=== PATIENT | female | born 1990 | race Two or more races ===

== ENCOUNTER 2016-09-03 18:42 | Emergency (ER) | payer SELFPAY ==
[~2016-09-03] VITALS: Ht 157.5 cm; Wt 49.9 kg
[2016-09-03] MEDS ORDERED: IV NORMAL SALINE 1000ML BAG 1,000 ML IV SCH (19:24)
[2016-09-03] MEDS ORDERED: ONDANSETRON PF 4 MG/2 ML VIAL. IV ONE (19:30)
[2016-09-03] MEDS ORDERED: KETOROLAC TROMETHAMINE 30 MG/ML SYRINGE. IV ONE (19:30)
[2016-09-03] MEDS ORDERED: HYDROMORPHONE 2 MG/ML VIAL. IV ONE (19:30)
[2016-09-03 19:33] LABS: BASO # 0.1 x10^3/uL (0.0-0.2); BASO % 1 % (0-3); EOS % 2 % (0-3); HEMATOCRIT 39.2 % (36.0-47.0); HEMOGLOBIN 12.9 g/dL (12.0-15.5); LYMPH # 3.6 x10^3/uL (1.0-4.8); LYMPH % 27 % (24-48); MEAN CORPUSCULAR HEMOGLOBIN 28 pg (25-35); MEAN CORPUSCULAR HGB CONC 33 g/dL (31-37); MEAN CORPUSCULAR VOLUME 86 fL (79-100); MONO % 6 % (0-9); NEUT % 64 % (31-73); PLATELET COUNT 195 x10^3/uL (140-400); RED BLOOD COUNT 4.58 x10^6/uL (3.50-5.40); RED CELL DISTRIBUTION WIDTH 12.9 % (11.5-14.5)
[2016-09-03 19:46] LABS: CREATININE 0.6 mg/dL (0.6-1.0); GFR 120.8; POTASSIUM 3.2 mmol/L (3.5-5.1)
[2016-09-03 19:52] LABS: ALBUMIN 4.1 g/dL (3.4-5.0); ALBUMIN/GLOBULIN RATIO 1.2 (1.0-1.7); TOTAL BILIRUBIN 0.7 mg/dL (0.2-1.0); TOTAL PROTEIN 7.6 g/dL (6.4-8.2)
[2016-09-03 20:25] VITALS: BP 122/69
--- NOTE | 2016-09-03 21:39 | RAD ---
PROCEDURE Right upper quadrant ultrasound dated 09/03/2016. HISTORY Right upper quadrant pain. TECHNIQUE Routine sonographic imaging performed. COMPARISON None. FINDINGS Liver is homogeneous in echogenicity. No focal hepatic mass. Intrahepatic biliary tree normal in caliber. The common bile duct is mildly dilated for age measuring 6 millimeters diameter. Echogenic shadowing foci within the gallbladder lumen. Mild wall thickening 4.2mm. No pericholecystic fluid. Intraluminal echogenic material consistent with sludge. Positive sonographic Brumfield's sign. Right kidney measures 10.7 centimeter in length without hydronephrosis. Left kidney not imaged. Limited visualized portions of pancreas aorta and IVC unremarkable. No significant ascites. IMPRESSION - Cholelithiasis with mild gallbladder wall thickening and positive Brumfield sign. Acute cholecystitis cannot be excluded. - Mildly dilated common bile duct for patient's age could be reactive. Distal duct stone or stricture cannot be excluded. Recommend laboratory correlation. Electronically signed by: Mehrdad Cadet (Sep 03, 2016 21:38:28)
[2016-09-03 21:54] LABS: NEG OBC UR NEG; POS OBC UR POS
[2016-09-03 21:59] LABS: BILIRUBIN,URINE NEGATIVE (NEG); GLUCOSE,URINE NEGATIVE (NEG); NITRITE,URINE NEGATIVE (NEG); PROTEIN,URINE NEGATIVE (NEG-TRACE); UROBILINOGEN,URINE 0.2 mg/dL (0.2 mg/dL)
[2016-09-03] MEDS ORDERED: HYOS0.125 PO (22:04)
[2016-09-03] MEDS ORDERED: IBUP-1007 PO (22:04)
[2016-09-03] MEDS ORDERED: HYDR-2678 PO (22:04)
[2016-09-03] MEDS ORDERED: ONDA4TAB10 SL (22:04)
--- NOTE | 2016-09-03 22:04 | PHYS DOC ---
Past Medical History Past Medical History: No Pertinent History Past Surgical History: No Surgical History Alcohol Use: Occasionally Drug Use: None Adult General Chief Complaint Chief Complaint: FLANK PAIN HPI HPI Patient is a 26 year old female who presents here today complaining of right upper quadrant pain with nausea vomiting. Patient has no past medical history. No history of hypertension diabetes liver longer kidney problems. Patient has not had any prior abdominal or chest surgeries. No smoking alcohol or drugs. No known drug allergies. Patient reports right upper quadrant pain started approximately 2 hours prior to arrival. She reports it started approximately 1 hour after eating a tortilla with a lot of hot sauce on it. Patient has any fevers shaking chills diarrhea dysuria frequency or urgency. Patient's last menstrual period was August 18, 2015. Patient denies any fevers shaking chills cough cold rhinorrhea dysuria frequency urgency melena or bright red blood per rectum. While in the ER, the patient had multiple episodes of emesis. Patient had severe tenderness to palpation in her right upper quadrant. Patient was given Toradol, Dilaudid, and Zofran with significant improvement in her discomfort. Patient had an ultrasound of her right upper quadrant which revealed cholelithiasis with mild gallbladder wall thickening. Patient had a positive Brumfield sign on the ultrasound exam however on my physical exam patient did not have a Brumfield sign. Patient had mildly dilated, mild duct noted on the ultrasound as well too. Patient was reevaluated at 9:45 PM. Upon reevaluation the patient reports that her pain is completely resolved. Patient has no tenderness to palpation to the right upper quadrant. Patient has no Brumfield sign. Patient has not had any emesis since the antibiotics that were given to her in the ED. Patient reports she is currently hungry and thirsty. The patient the options regarding her gallbladder disease. This appears to be her first episode of biliary colic. Given that this is her first episode and her symptoms are completely resolved at this time I think that it would be best final option to discharge her home with antiemetics, pain meds, antispasmodics and have her follow-up with her primary care physician for a surgical consultation. I discussed with the patient that if pain returns if she has any further episodes of emesis that she will likely need to be admitted to the hospital for pain management and hydration. Patient's family are in complete agreement with this plan at this time. They agree that admission to the hospital right now is not something that they would prefer. Patient's physical exam was significant for tenderness to palpation. Right upper quadrant. Patient no rebound or guarding. Patient had no tenderness at McBurney's point. Patient had no Brumfield sign. Patient had normal active bowel sounds. Patient is afebrile. Review of Systems Review of Systems Constitutional: Denies fever or chills [] Eyes: Denies change in visual acuity, redness, or eye pain [] All other review of systems are negative except as documented in the history of present illness portion Current Medications Current Medications Current Medications Medications (Trade) Dose Ordered Sig/Korina Start Time Stop Time Status Last Admin Dose Admin Hydromorphone HCl (Dilaudid) 1 mg 1X ONCE 09/03/16 19:30 09/03/16 19:31 DC 09/03/16 19:30 1 MG Ketorolac Tromethamine (Toradol) 15 mg 1X ONCE 09/03/16 19:30 09/03/16 19:31 DC 09/03/16 19:30 15 MG Ondansetron HCl (Zofran) 4 mg 1X ONCE 09/03/16 19:30 09/03/16 19:31 DC 09/03/16 19:30 4 MG Sodium Chloride (Iv Sodium Chloride 0.9% 1000ml Bag) 1,000 ml @ 1,000 mls/hr Q1H 09/03/16 19:24 09/03/16 20:23 DC 09/03/16 19:24 1,000 MLS/HR Allergies Allergies Allergies Coded Allergies Type Severity Reaction Last Updated Verified No Known Drug Allergies 09/03/16 No Physical Exam Physical Exam Constitutional: Well developed, well nourished, no acute distress, non-toxic appearance. [] HENT: Normocephalic, atraumatic, bilateral external ears normal, oropharynx moist, no oral exudates, nose normal. [] Eyes: PERRLA, EOMI, conjunctiva normal, no discharge. [] Neck: Normal range of motion, no tenderness, supple, no stridor. [] Cardiovascular:Heart rate regular rhythm, no murmur [] Lungs & Thorax: Bilateral breath sounds clear to auscultation [] Abdomen: Please see above Skin: Warm, dry, no erythema, no rash. [] Back: No tenderness, no CVA tenderness. [] Extremities: No tenderness, no cyanosis, no clubbing, ROM intact, no edema. [] Neurologic: Alert and oriented X 3, normal motor function, normal sensory function, no focal deficits noted. [] Psychologic: Affect normal, judgement normal, mood normal. [] Current Patient Data Vital Signs Vital Signs Date Time Temp Pulse Resp B/P Pulse Ox O2 Delivery O2 Flow Rate FiO2 09/03/16 18:55 97.8 63 16 125/69 100 Room Air 97.8 Lab Values Laboratory Tests Test 09/03/16 18:55 09/03/16 20:52 White Blood Count 13.0x10^3/uL (4.0-11.0) H Red Blood Count 4.58x10^6/uL (3.50-5.40) Hemoglobin 12.9g/dL (12.0-15.5) Hematocrit 39.2% (36.0-47.0) Mean Corpuscular Volume 86fL (79-100) Mean Corpuscular Hemoglobin 28pg (25-35) Mean Corpuscular Hemoglobin Concent 33g/dL (31-37) Red Cell Distribution Width 12.9% (11.5-14.5) Platelet Count 195x10^3/uL (140-400) Neutrophils (%) (Auto) 64% (31-73) Lymphocytes (%) (Auto) 27% (24-48) Monocytes (%) (Auto) 6% (0-9) Eosinophils (%) (Auto) 2% (0-3) Basophils (%) (Auto) 1% (0-3) Neutrophils # (Auto) 8.4x10^3uL (1.8-7.7) H Lymphocytes # (Auto) 3.6x10^3/uL (1.0-4.8) Monocytes # (Auto) 0.8x10^3/uL (0.0-1.1) Eosinophils # (Auto) 0.2x10^3/uL (0.0-0.7) Basophils # (Auto) 0.1x10^3/uL (0.0-0.2) Sodium Level 143mmol/L (136-145) Potassium Level 3.2mmol/L (3.5-5.1) L Chloride Level 105mmol/L (98-107) Carbon Dioxide Level 25mmol/L (21-32) Anion Gap 13 (6-14) Blood Urea Nitrogen 12mg/dL (7-20) Creatinine 0.6mg/dL (0.6-1.0) Estimated GFR (Cockcroft-Gault) 120.8 BUN/Creatinine Ratio 20 (6-20) Glucose Level 110mg/dL (70-99) H Calcium Level 9.0mg/dL (8.5-10.1) Total Bilirubin 0.7mg/dL (0.2-1.0) Aspartate Amino Transferase (AST) 14U/L (15-37) L Alanine Aminotransferase (ALT) 21U/L (14-59) Alkaline Phosphatase 62U/L (46-116) Total Protein 7.6g/dL (6.4-8.2) Albumin 4.1g/dL (3.4-5.0) Albumin/Globulin Ratio 1.2 (1.0-1.7) Lipase 135U/L (73-393) Urine Test Negative (NEG) Laboratory Tests 09/03/16 18:55 Laboratory Tests 09/03/16 18:55 EKG EKG [] Radiology/Procedures Radiology/Procedures [] Ultrasound please see above Course & Med Decision Making Course & Med Decision Making Pertinent Labs and Imaging studies reviewed. (See chart for details) [] Assessment and plan. This a 26-year-old with cholelithiasis that has resolved with pain meds and antiemetics in the ED. Please see above for full discussion with the family. Patient will be discharged home in stable condition. Patient was instructed to return to the ER if she has any further problems. Dragon Disclaimer Dragon Disclaimer This electronic medical record was generated, in whole or in part, using a voice recognition dictation system. Departure Departure Impression: Primary Impression: Biliary colic Disposition: 01 HOME, SELF-CARE Condition: IMPROVED Referrals: NO PCP (PCP) Patient Instructions: Biliary Colic Additional Instructions: Please follow up with her family doctor for referral to see a surgeon to be further evaluated for your gallbladder. Return to the ER for any fevers. Return to the ER if have increasing pain that is not resolved with the medicines that you were given. Return to the ER if you have persistent vomiting again. Scripts Hyoscyamine Sulfate 0.125 Mg Tab.rapdis0.125 Mg PO q6 PRN pa #10 Prov:OTTO LEE MD 09/03/16 Ondansetron (Zofran Odt)4 Mg Tab.rapdis1 Tab SL Q6HRS PRN NAUSEA #12 TAB Prov:OTTO LEE MD 09/03/16 Hydrocodone/Acetaminophen (Lortab 5-325 mg Tablet)1 Each Tablet1 Tab PO PRN Q6HRS PRN PAIN #14 TAB Prov:OTTO LEE MD 09/03/16 Ibuprofen 600 Mg [id number] Mg PO PRN Q6HRS PRN INFLAMMATION #20 TAB Prov:OTTO LEE MD 09/03/16 OTTO LEE MD Sep 03, 2016 22:04
[2016-09-03 22:10] LABS: RBC,URINE 0 /HPF (0-2)
[2016-09-03 22:11] LABS: BACTERIA,URINE FEW /HPF (0-FEW); SQUAMOUS EPITHELIAL CELL,UR FEW /LPF
== END 2016-09-03 22:28 | disposition home or self-care (01) ==
LOC: ER 18:42
DX: K80.50 Calculus of bile duct without cholangitis or cholecystitis without obstruction (principal); R50.9 Fever, unspecified; R11.2 Nausea with vomiting, unspecified
CPT/HCPCS: 36415; 76705; 80053; 81001; 81025; 83690; 85027; 96361; 96374; 96375; 99285; J1170; J1885; J2405; J7030

== ENCOUNTER 2017-06-08 01:03 | Inpatient (IN) | payer SELFPAY ==
[~2017-06-08] VITALS: Ht 152.4 cm; Wt 68.0 kg
[~2017-06-08 01:03] MED LIST: HYDR-2678 PO; HYOS0.1222 PO; IBUP-1007 PO; ONDA4TAB10 SL
[2017-06-08 01:36] VITALS: BP 106/65
[2017-06-08] MEDS ORDERED: BUTORPHANOL 2 MG/ML VIAL. IV PRN (02:15)
[2017-06-08] MEDS ORDERED: ONDANSETRON PF 4 MG/2 ML VIAL. IV PRN (02:15)
[2017-06-08] MEDS ORDERED: ACETAMINOPHEN 325 MG TABLET. PO PRN ×2 (02:15→04:30)
[2017-06-08] MEDS ORDERED: IV RINGERS,LACTATED 1000ML 1,000 ML IV SCH (02:15)
[2017-06-08] MEDS ORDERED: TERBUTALINE 1 MG/ML VIAL. SQ PRN (02:15)
[2017-06-08] MEDS ORDERED: 0.9 % SODIUM CHLORIDE 10 ML DISP.SYRIN. IV PRN ×2 (02:15→04:30)
[2017-06-08] MEDS ORDERED: fentaNYL PF VIAL 100 MCG/2 ML VIAL IV PRN (02:15)
[2017-06-08] MEDS ORDERED: OXYTOCIN 30 UNIT/500 ML PREMIX 500 ML IV PRN ×2 (02:15→04:30)
[2017-06-08] MEDS ORDERED: IBUPROFEN 600 MG TABLET. PO PRN (02:15)
[2017-06-08] MEDS ORDERED: MAG HYDROX/ALUMINUM HYD/SIMETH 30 ML ORAL.SUSP PO PRN ×2 (02:15→04:30)
[2017-06-08] MEDS ORDERED: LIDOCAINE 1% PF 30 ML VIAL. INJ PRN (02:15)
--- NOTE | 2017-06-08 02:28 | PDOC1 ---
OB - History Hx of Present Care: Good Care Ultrasounds: Normal mid trimester US Obstetrical Complications: None Medical Complications: None Past Family/Social History * Past Medical, Surgical, Family and Obstetric Histories reviewed from chart. Rubella: Immune RPR/VDRL: Negative GBS Status: Negative HBsAG: Negative OB - Chief Complaint & HPI Date of Admission: Date of Admission: Jun 08, 2017 at 01:03 Chief Complaint/History : 4 Para: 2 EGA: 38 Reason for admission: active labor Admission Nurse Assessment Rev: Yes Problems: OB - Admission Exam Physical Exam HEENT: Normal Heart: Regular Rate Lungs: Clear Abdomen: Gravid, Non tender, Soft Extremities: Edema Reflexes: Normal Cervical Dilatation: 7cm Effacement: 100% Station: -2 Membranes: Intact Heart Rate: Normal Accelerations: Accelerations Present Decelerations: No decelerations Contractions on Admission: < 5 Minutes Apart Intensity: Firm Text A: 38 wks IUP Active labor P: Admit for labor management. DARRYL WEISS Jr, MD Jun 08, 2017 02:28
[2017-06-08 02:45] LABS: HEMATOCRIT 38.8 % (36.0-47.0); HEMOGLOBIN 12.8 g/dL (12.0-15.5); RED BLOOD COUNT 4.51 x10^6/uL (3.50-5.40); RED CELL DISTRIBUTION WIDTH 13.3 % (11.5-14.5); WHITE BLOOD COUNT 11.4 x10^3/uL (4.0-11.0)
[2017-06-08] MEDS ORDERED: PENICILLIN G K 5,000,000 UNIT in IV DEXTROSE 5% 100 ML IV ONE (03:00)
[2017-06-08] MEDS ORDERED: OXYTOCIN in NORMAL SALINE PREMIX 30 UNIT/500 ML BAG. IV ONE (03:30)
--- NOTE | 2017-06-08 04:23 | PDOC ---
VAGINAL DELIVERY DATE DATE: 06/08/17 TIME: 04:21 : 4 Para: 3 EGA: 38 VAGINAL DELIVERY: VTX VACCUM ASSISTED: No PLACENTA: Spontaneous 9/9 SEX: Male WEIGHT Weight [3294 gm ] Nuchal Cord: No Amniotic Fluid: Thin Meconium PAIN: Natural EPISIOTOMY: No EXTENSION: Yes (2nd degree midline laceration) REPAIRED WITH 2-0 Vicryl EBL 300 ml COMPLICATIONS none CONDITION pt. stable Signs of Intrauterine Infectio: None Shoulder Dystocia: No Problems: DARRYL WEISS Jr, MD Jun 08, 2017 04:23
[2017-06-08] MEDS ORDERED: MAGNESIUM HYDROXIDE 2,400 MG/30 ML ORAL.SUSP. PO PRN (04:30)
[2017-06-08] MEDS ORDERED: ZOLPIDEM 5 MG TABLET. PO PRN (04:30)
[2017-06-08] MEDS ORDERED: SIMETHICONE 80 MG TAB.CHEW PO PRN (04:30)
[2017-06-08] MEDS ORDERED: oxyCODONE/APAP 5/325 1 TAB TABLET PO PRN (04:30)
[2017-06-08] MEDS ORDERED: PHENYLEPH/MINERAL OIL/PETROLAT RECTAL OINTMENT 28GM TUBE. RC PRN (04:30)
[2017-06-08] MEDS ORDERED: MMR per PROTOCOL. MC PRN (04:30)
[2017-06-08] MEDS ORDERED: HYDROCORTISONE 1% TOPICAL OINTMENT 30GM TUBE. TP PRN (04:30)
[2017-06-08] MEDS ORDERED: BENZOCAINE 20% TOPICAL AEROSOL SPRAY 57GM CAN. TP PRN (04:30)
[2017-06-08] MEDS ORDERED: diphenhydrAMINE HCL 25 MG CAPSULE PO PRN (04:30)
[2017-06-08] MEDS: IBUPROFEN 800 MG TABLET. PO PRN ×2 (05:58→18:10)
[2017-06-08] MEDS ORDERED: PENICILLIN G K 2,500,000 UNIT in IV DEXTROSE 5% 50 ML IV SCH (07:00)
[2017-06-08 09:10] VITALS: BP 111/71
[2017-06-08 22:00] VITALS: BP 103/60
[2017-06-09 02:00] VITALS: BP 95/61
[2017-06-09 05:03] LABS: BASO % 0 % (0-3); EOS % 2 % (0-3); HEMATOCRIT 34.7 % (36.0-47.0); HEMOGLOBIN 11.6 g/dL (12.0-15.5); LYMPH # 3.3 x10^3/uL (1.0-4.8); LYMPH % 29 % (24-48); MEAN CORPUSCULAR HEMOGLOBIN 29 pg (25-35); MEAN CORPUSCULAR HGB CONC 33 g/dL (31-37); MEAN CORPUSCULAR VOLUME 86 fL (79-100); MONO % 9 % (0-9); NEUT % 60 % (31-73); PLATELET COUNT 211 x10^3/uL (140-400); RED BLOOD COUNT 4.03 x10^6/uL (3.50-5.40); RED CELL DISTRIBUTION WIDTH 13.8 % (11.5-14.5); WHITE BLOOD COUNT 11.7 x10^3/uL (4.0-11.0)
[2017-06-09] MEDS: IBUPROFEN 800 MG TABLET. PO PRN ×2 (07:44→20:30)
[2017-06-09] MEDS: DOCUSATE SODIUM 100 MG CAPSULE. PO PRN ×2 (07:44→20:30)
[2017-06-09] MEDS ORDERED: FERROUS SULFATE 325 MG TABLET. PO SCH (08:00)
[2017-06-09] MEDS ORDERED: FLU VACC QS2017-18 (36MOS+)/PF 0.5 ML SYRINGE. VAX IM ONE (08:00)
[2017-06-09 08:45] VITALS: BP 102/65
--- NOTE | 2017-06-09 09:14 | PDOC ---
Provider Note Provider Note Doing well VSSuterus NTTP FU in AM Vital Sign - Last 24 Hours 06/08/17 06/09/17 22:00 02:00 Temp 98.0 98.0 98.0 98.0 Pulse 74 84 Resp 16 16 B/P (MAP) 103/60 (74) 95/61 (72) Pulse Ox 98 O2 Delivery Room Air Room Air CBC - BMP 06/09/17 03:40 NAS HOLDEN MD Jun 09, 2017 09:14
[2017-06-09] MEDS ORDERED: DIPHTH,PERTUSS(ACELL),TET TOX 0.5 ML DISP.SYRIN. VAX IM ONE (11:30)
[2017-06-09 15:39] VITALS: BP 105/62
[2017-06-09 20:30] VITALS: BP 103/66
[2017-06-10 05:00] VITALS: BP 103/64
--- NOTE | 2017-06-10 11:55 | PDOC ---
OB Progress Note Date of Service 06/10/17 Time of Evaluation 1155 Notes Pt. feeling well. No complaints. Lab Laboratory Tests Test 06/09/17 03:40 White Blood Count 11.7 x10^3/uL (4.0-11.0) Red Blood Count 4.03 x10^6/uL (3.50-5.40) Hemoglobin 11.6 g/dL (12.0-15.5) Hematocrit 34.7 % (36.0-47.0) Mean Corpuscular Volume 86 fL (79-100) Mean Corpuscular Hemoglobin 29 pg (25-35) Mean Corpuscular Hemoglobin Concent 33 g/dL (31-37) Red Cell Distribution Width 13.8 % (11.5-14.5) Platelet Count 211 x10^3/uL (140-400) Neutrophils (%) (Auto) 60 % (31-73) Lymphocytes (%) (Auto) 29 % (24-48) Monocytes (%) (Auto) 9 % (0-9) Eosinophils (%) (Auto) 2 % (0-3) Basophils (%) (Auto) 0 % (0-3) Neutrophils # (Auto) 7.0 x10^3uL (1.8-7.7) Lymphocytes # (Auto) 3.3 x10^3/uL (1.0-4.8) Monocytes # (Auto) 1.0 x10^3/uL (0.0-1.1) Eosinophils # (Auto) 0.3 x10^3/uL (0.0-0.7) Basophils # (Auto) 0.0 x10^3/uL (0.0-0.2) Medications Current Medications Sodium Chloride (Normal Saline Flush) 3 ml QSHIFT PRN IV AFTER MEDS AND BLOOD DRAWS; Start 06/08/17 at 02:15; Stop 06/08/17 at 04:29; Status DC Ringer's Solution 1,000 ml @ 125 mls/hr Q8H IV Last administered on 01:55; Start 06/08/17 at 02:15 Butorphanol Tartrate (Stadol) 2 mg PRN Q1HR PRN IV Severe labor pain Last administered on 06/08/17 03:28; Start 06/08/17 at 02:15 Fentanyl Citrate (Fentanyl 2ml Vial) 100 mcg PRN Q20MIN PRN IV Labor pain; Start 06/08/17 at 02:15 Acetaminophen (Tylenol) 650 mg PRN Q6HRS PRN PO MILD PAIN / TEMP; Start at 02:15; Stop 06/08/17 at 04:29; Status DC Ondansetron HCl (Zofran) 4 mg PRN Q4HRS PRN IV NAUSEA/VOMITING; Start at 02:15 Al Hydroxide/Mg Hydroxide (Mylanta Plus Xs) 30 ml PRN Q4HRS PRN PO HEARTBURN / GAS; Start 06/08/17 at 02:15; Stop 06/08/17 at 04:30; Status DC Terbutaline Sulfate (Brethine) 0.25 mg 1X PRN PRN SQ SEE COMMENTS; Start 06/08 at 02:15; Stop 06/09/17 at 02:15; Status DC Lidocaine HCl 30 ml 1X PRN PRN INJ SEE COMMENTS Last administered on 04:27; Start 06/08/17 at 02:15; Stop 06/10/17 at 02:14; Status DC Oxytocin/Sodium Chloride 500 ml @ 0 mls/hr CONT PRN PRN IV Post delivery bleeding; Start 06/08/17 at 02:15; Stop 06/08/17 at 04:31; Status DC Ibuprofen (Motrin) 600 mg PRN Q6HRS PRN PO MODERATE PAIN; Start 06/08/17 at 02 :15; Stop 06/08/17 at 04:29; Status DC Penicillin G Potassium [id number] unit/Dextrose 100 ml @ 100 mls/hr 1X ONCE IV Last administered on 06/08/17 02:42; Start 06/08/17 at 03:00; Stop 06/08/17 at 03:59; Status DC Penicillin G Potassium [id number] unit/Dextrose 50 ml @ 100 mls/hr Q4H IV ; Start 06/08/17 at 07:00 Sodium Chloride (Normal Saline Flush) 10 ml QSHIFT PRN IV AFTER MEDS AND BLOOD DRAWS; Start 06/08/17 at 04:30 Oxytocin/Sodium Chloride 500 ml @ 62.5 mls/hr CONT PRN IV SEE I/O RECORD; Start 06/08/17 at 04:30; Stop 06/08/17 at 12:29; Status DC Acetaminophen (Tylenol) 650 mg PRN Q6HRS PRN PO MILD PAIN / TEMP; Start at 04:30 Ibuprofen (Motrin) 800 mg PRN Q8HRS PRN PO INFLAMMATION/PAIN PREVENTION Last administered on 06/09/17 20:30; Start 06/08/17 at 04:30 Docusate Sodium (Colace) 100 mg PRN BID PRN PO CONSTIPATION Last administered on 06/09/17 20:30; Start 06/08/17 at 04:30 Magnesium Hydroxide (Milk Of Magnesia) 2,400 mg PRN DAILY PRN PO CONSTIPATION; Start 06/08/17 at 04:30 Al Hydroxide/Mg Hydroxide (Mylanta Plus Xs) 30 ml PRN Q4HRS PRN PO HEARTBURN / GAS; Start 06/08/17 at 04:30 Simethicone (Gas-X) 80 mg PRN AFTMEALHC PRN PO GAS / BLOATING; Start 06/08/17 at 04:30 Diphenhydramine HCl (Benadryl) 25 mg PRN Q6HRS PRN PO ITCHING; Start 06/08/17 at 04:30 Benzocaine (Americaine) 1 spray PRN QID PRN TP TOPICAL PAIN Last administered on 06/08/17 05:58; Start 06/08/17 at 04:30 Phenyleph/Shark Oil/Min Oil/Petrol (Preparation H) 1 ari PRN QID PRN RC RECTAL PAIN; Start 06/08/17 at 04:30 Hydrocortisone (Cortaid) 1 ari PRN QID PRN TP PERINEAL PAIN; Start 06/08/17 at 04:30 Ferrous Sulfate (Feosol) 325 mg BIDWMEALS PO ; Start 06/09/17 at 08:00 Zolpidem Tartrate (Ambien) 5 mg PRN QHS PRN PO INSOMNIA, MAY REPEAT X1; Start 06/08/17 at 04:30 Info (Do NOT chart on this placeholder) 1 ea 1X PRN PRN MC SEE COMMENTS; Start 06/08/17 at 04:30 Info (Do NOT chart on this placeholder) 1 ea 1X PRN PRN MC SEE COMMENTS; Start 06/08/17 at 04:30 Oxycodone/ Acetaminophen (Percocet 5/325) 2 tab PRN Q4HRS PRN PO MODERATE PAIN , SEVERE PAIN; Start 06/08/17 at 04:30 Oxytocin/Sodium Chloride (Oxytocin Premix Infusion) 30 unit STK-MED ONCE IV ; Start 06/08/17 at 03:30; Stop 06/08/17 at 08:58; Status DC Influenza Virus Vaccine Quadrival (Fluarix Quad [id number] Syringe) 0.5 ml ONCE ONCE VAX IM Last administered on 06/09/17 11:15; Start 06/09/17 at 08:00; Stop 06/09/17 at 08:01; Status DC Diphtheria/ Tetanus/Acell Pertussis (Boostrix) 0.5 ml ONCE ONCE VAX IM Last administered on 06/09/17 11:34; Start 06/09/17 at 11:30; Stop 06/09/17 at 11 :31; Status DC Active Scripts Active Hyoscyamine Sulfate 0.125 Mg Tab.rapdis 0.125 Mg PO Q6 PRN Zofran Odt (Ondansetron) 4 Mg Tab.rapdis 1 Tab SL Q6HRS PRN Lortab 5-325 mg Tablet (Hydrocodone/Acetaminophen) 1 Each Tablet 1 Tab PO PRN Q6HRS PRN Ibuprofen 600 Mg Tablet 600 Mg PO PRN Q6HRS PRN Exam Abd: soft, non tender, fundus firm Assessment PPD#2 s/p Plan of Care: See new orders (D/c home.) DARRYL WEISS Jr, MD Jun 10, 2017 11:55
--- NOTE | 2017-06-10 11:56 | DISCH ---
DISCHARGE INSTRUCTIONS Condition on Discharge Condition on Discharge: Stable Activity After Discharge Activity Instructions for Disc: Activity as tolerated Lifting Instructions after Dis: No heavy lifting Driving Instructions after Dis: Do not drive today Diet after Discharge Diet after Discharge: Regular Contacting the DRKwasi after DC Call your doctor for: Concerns you may have Follow-Up Follow up with: [facility] in 6 weeks. DARRYL WEISS Jr, MD Jun 10, 2017 11:56
[2017-06-10] MEDS ORDERED: IBUP-1060 PO (11:57)
[2017-06-10 13:21] VITALS: BP 96/59
== END 2017-06-10 14:38 | disposition home or self-care (01) | DRG 775 ==
LOC: 3 SO LND 01:03 → OBSVTOIN 01:03 → 3 SO LND 08:25
PROVIDERS: ADMIT Obstetrics & Gynecology; ATTEND Obstetrics & Gynecology
PROC: 10E0XZZ Delivery of Products of Conception, External Approach (ICD-10-PCS; principal; 2017-06-08)
PROC: 0KQM0ZZ Repair Perineum Muscle, Open Approach (ICD-10-PCS; 2017-06-08)
PROC: 3E0P7VZ Introduction of Hormone into Female Reproductive, Via Natural or Artificial Opening (ICD-10-PCS; 2017-06-08)
DX: O77.0 Labor and delivery complicated by meconium in amniotic fluid (principal); O70.1 Second degree perineal laceration during delivery; Z3A.39 39 weeks gestation of pregnancy; Z37.0 Single live birth
CPT/HCPCS: 36415; 85025; 85027; 86593; 86850; 86900; 86901; 90471; 90472; 90686; 90715; 96361; 96365; 96375; G0378; G0379; J2540; J2590; J7120

== ENCOUNTER 2018-07-13 00:08 | Inpatient (IN) | payer SELFPAY ==
[~2018-07-13] VITALS: Ht 152.4 cm; Wt 68.9 kg
[~2018-07-13 00:08] MED LIST changes: +IBUP-1060 PO
[2018-07-13] MEDS ORDERED: IV RINGERS,LACTATED 1000ML 1,000 ML IV SCH (00:15)
[2018-07-13] MEDS ORDERED: OXYTOCIN 30 UNIT/500 ML PREMIX 500 ML IV ONE (00:21)
[2018-07-13] MEDS ORDERED: LIDOCAINE 1% PF 30 ML VIAL. ONE (00:22)
[2018-07-13] MEDS ORDERED: NALBUPHINE 10 MG/ML AMPUL. ONE (00:32)
[2018-07-13] MEDS ORDERED: OXYTOCIN 30 UNIT/500 ML PREMIX 500 ML IV PRN ×2 (00:45→01:00)
[2018-07-13] MEDS ORDERED: TERBUTALINE 1 MG/ML VIAL. SQ PRN (00:45)
[2018-07-13] MEDS ORDERED: NALBUPHINE 10 MG/ML AMPUL. IV PRN (00:45)
[2018-07-13] MEDS ORDERED: LIDOCAINE 1% PF 30 ML VIAL. INJ PRN (00:45)
[2018-07-13] MEDS ORDERED: IV RINGERS,LACTATED 1000ML 1,000 ML IV PRN (00:45)
[2018-07-13] MEDS ORDERED: fentaNYL PF VIAL 100 MCG/2 ML VIAL IV PRN (00:45)
[2018-07-13] MEDS ORDERED: 0.9 % SODIUM CHLORIDE 10 ML DISP.SYRIN. IV PRN ×2 (00:45→01:00)
[2018-07-13] MEDS ORDERED: ACETAMINOPHEN 325 MG TABLET. PO PRN ×2 (00:45→01:00)
[2018-07-13] MEDS ORDERED: ONDANSETRON PF 4 MG/2 ML VIAL. IV PRN (00:45)
[2018-07-13] MEDS ORDERED: HYDROCORTISONE 1% TOPICAL OINTMENT 30GM TUBE. TP PRN (01:00)
[2018-07-13] MEDS ORDERED: diphenhydrAMINE HCL 25 MG CAPSULE PO PRN (01:00)
[2018-07-13] MEDS ORDERED: BENZOCAINE 20% TOPICAL AEROSOL SPRAY 57GM CAN. TP PRN (01:00)
[2018-07-13] MEDS ORDERED: ZOLPIDEM 5 MG TABLET. PO PRN (01:00)
[2018-07-13] MEDS ORDERED: MAGNESIUM HYDROXIDE 2,400 MG/30 ML ORAL.SUSP. PO PRN (01:00)
[2018-07-13] MEDS ORDERED: MAG HYDROX/ALUMINUM HYD/SIMETH 30 ML ORAL.SUSP PO PRN (01:00)
[2018-07-13] MEDS ORDERED: PHENYLEPH/MINERAL OIL/PETROLAT RECTAL OINTMENT 28GM TUBE. RC PRN (01:00)
[2018-07-13] MEDS ORDERED: SIMETHICONE 80 MG TAB.CHEW PO PRN (01:00)
[2018-07-13 01:17] LABS: BASO # 0.1 x10^3/uL (0.0-0.2); BASO % 1 % (0-3); EOS # 0.1 x10^3/uL (0.0-0.7); EOS % 1 % (0-3); HEMATOCRIT 35.3 % (36.0-47.0); HEMOGLOBIN 12.2 g/dL (12.0-15.5); LYMPH # 1.7 x10^3/uL (1.0-4.8); LYMPH % 17 % (24-48); MEAN CORPUSCULAR HEMOGLOBIN 29 pg (25-35); MEAN CORPUSCULAR HGB CONC 35 g/dL (31-37); MEAN CORPUSCULAR VOLUME 85 fL (79-100); MONO # 0.9 x10^3/uL (0.0-1.1); MONO % 9 % (0-9); NEUT # 7.4 x10^3uL (1.8-7.7); NEUT % 72 % (31-73); PLATELET COUNT 201 x10^3/uL (140-400); RED BLOOD COUNT 4.17 x10^6/uL (3.50-5.40); RED CELL DISTRIBUTION WIDTH 13.2 % (11.5-14.5); WHITE BLOOD COUNT 10.2 x10^3/uL (4.0-11.0)
[2018-07-13 01:24] VITALS: BP 120/55
[2018-07-13 03:00] VITALS: BP 114/63
[2018-07-13 06:29] VITALS: BP 107/58
[2018-07-13] MEDS: IBUPROFEN 400 MG TABLET. PO PRN (08:00)
[2018-07-13] MEDS: FERROUS SULFATE 325 MG TABLET. PO SCH ×2 (08:00→16:30)
[2018-07-13] MEDS: DOCUSATE SODIUM 100 MG CAPSULE. PO PRN (09:28)
[2018-07-13 10:15] VITALS: BP 95/41
[2018-07-13 17:41] VITALS: BP 98/55
[2018-07-13 23:00] VITALS: BP 83/53
[2018-07-14 06:36] VITALS: BP 91/60
[2018-07-14] MEDS: IBUPROFEN 400 MG TABLET. PO PRN ×2 (08:40→18:09)
[2018-07-14] MEDS: DOCUSATE SODIUM 100 MG CAPSULE. PO PRN (08:40)
[2018-07-14 11:00] VITALS: BP 108/63
--- NOTE | 2018-07-14 15:01 | PDOC ---
Provider Note Provider Note Doing well VSS Uterus NTTP FU in AM NAS HOLDEN MD Jul 14, 2018 15:00
[2018-07-14 18:08] VITALS: BP 101/59
[2018-07-14 22:23] VITALS: BP 108/65
[2018-07-15 05:00] VITALS: BP 99/65
[2018-07-15] MEDS ORDERED: OXYC1TAB15 PO (08:56)
[2018-07-15] MEDS ORDERED: NAPR-514 PO (08:56)
[2018-07-15] MEDS ORDERED: HYDR-3164 PO (09:09)
--- NOTE | 2018-07-15 09:12 | PDOC3 ---
OB DISCHARGE SUMMARY DATE OF ADMISSION: 07/13/18 DATE OF DISCHARGE: 07/15/18 REASON FOR ADMISSION: Onset of labor PROCEDURES: Ultrasound INTRAPARTUM PROCEDURES: Spontanous Vag Deliv PROCEDURES: None OPERATIONS: None DISCHARGE DIAGNOSIS: Term Delivered DISCHARGE INFORMATION: Activity, Diet HOSPITAL COURSE Stable CONDITION AT DISCHARGE Stable NAS HOLDEN MD Jul 15, 2018 09:12
[2018-07-15] MEDS: DOCUSATE SODIUM 100 MG CAPSULE. PO PRN (09:56)
[2018-07-15] MEDS: IBUPROFEN 400 MG TABLET. PO PRN (09:57)
[2018-07-15 10:30] VITALS: BP 118/73
--- NOTE | 2018-07-15 12:09 | EKG ---
[facility] [address] [place] [address] Test Date: 2018-07-15 Test Time: 12:05:25 Pat Name: SAYDA CHANEL Department: Room: [facility] Gender: F Employee Relations Administrator: : 1990 Requested By: NAS HOLDEN Order Number: [id number] Reading MD: Measurements Intervals [place] Rate: 67 P: 28 NH: 172 QRS: 28 QRSD: 80 T: 31 QT: 392 QTc: 417 Interpretive Statements SINUS RHYTHM LOW LIMB LEAD VOLTAGE QRS(T) CONTOUR ABNORMALITY CONSIDER ANTEROSEPTAL MYOCARDIAL DAMAGE POSSIBLY ABNORMAL ECG RI6.01 No previous ECG available for comparison
[2018-07-15 14:05] VITALS: BP 117/73
== END 2018-07-15 18:35 | disposition home or self-care (01) | DRG 807 ==
LOC: 3 SO LND 00:08 → OBSVTOIN 00:08 → 3 NORTH 02:55
PROVIDERS: ADMIT Specialist; ATTEND Specialist
PROC: 10E0XZZ Delivery of Products of Conception, External Approach (ICD-10-PCS; principal; 2018-07-13)
PROC: 0KQM0ZZ Repair Perineum Muscle, Open Approach (ICD-10-PCS; 2018-07-13)
DX: O62.3 Precipitate labor (principal); Z37.0 Single live birth; O70.1 Second degree perineal laceration during delivery; O77.0 Labor and delivery complicated by meconium in amniotic fluid; Z3A.37 37 weeks gestation of pregnancy; O99.820 Streptococcus B carrier state complicating pregnancy
CPT/HCPCS: 36415; 85014; 85025; 86592; 86850; 86900; 86901; 93005; J2300; J2590; J7120